=== PATIENT | female | born 1940 | race Caucasian/White ===

== ENCOUNTER 2016-10-23 13:52 | Emergency (ER) | payer MEDICARE, MEDICAID ==
[2016-10-23 14:02] VITALS: BP 105/60; PULSE 63; RESP 19; TEMP 98.2; O2SAT 98
--- NOTE | 2016-10-23 15:17 | ED PDOC ---
Syncope/Near Syncope/Dizziness Time Seen by Provider: 10/23/16 14:10 Chief Complaint (Nursing): Dizziness/Lightheaded Chief Complaint (Provider): Generlized weakness, not feeling well History Per: Patient History/Exam Limitations: no limitations Onset/Duration Of Symptoms: Days (2 weeks) Current Symptoms Are (Timing): Still Present Activity At Onset Of Symptoms: Sitting, Walking Possible Causative Factor(s): denies: Diurectics, New Medications, Recent Alcohol, Decreased PO Intake Additional Complaint(s): Pt is with niece called patient to go shopping today and she said she wasn't feeling well. Pt also reported feeling sad over issues with her . Pt denies chest pain or SOB. PT states this not feeling well and generalized weakness for 2 -3 weeks Past Medical History Reviewed: Historical Data, Nursing Documentation, Vital Signs Vital Signs: Last Vital Signs Temp 98.2 F 10/23/16 14:00 Pulse 63 10/23/16 14:00 Resp 19 10/23/16 14:00 BP 105/60 10/23/16 14:00 Pulse Ox 98 10/23/16 14:00 - Medical History PMH: Depression, HTN, Hypothyroidism, Osteoporosis Denies: Chronic Kidney Disease - Surgical History Surgical History: Appendectomy - Family History Family History: States: No Known Family Hx - Living Arrangements Living Arrangements: With Family - Social History Current smoker - smoking cessation education provided: No - Home Medications Home Medications: Ambulatory Orders Medication Instructions Recorded Aspirin [Aspirin EC] 81 mg PO DAILY 08/07/14 Ergocalciferol (Vitamin D2) 2,000 iu PO DAILY 08/07/14 [Vitamin D2] Fenofibrate [Triglide] 160 mg PO DAILY 08/07/14 Levothyroxine [Synthroid] 0.075 mg PO DAILY 08/07/14 Sertraline Hydrochloride 100 mg PO DAILY 08/07/14 Simvastatin 40 mg PO DAILY 08/07/14 Solifenacin Succinate [Vesicare] 5 mg PO DAILY 08/07/14 Valsartan/Hydrochlorothiazide 1 tab PO DAILY 08/07/14 [Valsartan and Hydrochlorothiazide 25 mg-160 M] Baclofen [Lioresal] 20 mg PO Q8 10/23/16 Bimatoprost [Lumigan 2.5 ml] 2.5 ml OP DAILY 10/23/16 Dorzolamide HCl/Timolol Maleat 10 ml OP DAILY 10/23/16 [Dorzolamide Hydrochloride/Timolol Maleate 22] cycloSPORINE [Restasis] 0.05 % OP DAILY 10/23/16 - Allergies Allergies/Adverse Reactions: Allergies Allergy/AdvReac Type Severity Reaction Status Date / Time No Known Allergies Allergy Verified 10/23/16 13:59 Review of Systems ROS Statement: Except As Marked, All Systems Reviewed And Found Negative Constitutional: Positive for: Weakness. Negative for: Fever, Chills Physical Exam - Reviewed Nursing Documentation Reviewed: Yes Vital Signs Reviewed: Yes - Physical Exam Appears: Positive for: Well, Non-toxic, No Acute Distress Head Exam: Positive for: ATRAUMATIC, NORMAL INSPECTION, NORMOCEPHALIC Skin: Positive for: Normal Color, Warm, DRY Eye Exam: Positive for: Normal appearance ENT: Positive for: Normal ENT Inspection Neck: Positive for: Normal, Painless ROM Cardiovascular/Chest: Positive for: Regular Rate, Rhythm Respiratory: Positive for: CNT, Normal Breath Sounds Gastrointestinal/Abdominal: Positive for: Normal Exam, Bowel Sounds, Soft Back: Positive for: Normal Inspection Extremity: Positive for: Normal ROM Neurologic/Psych: Positive for: Alert, Oriented - Laboratory Results Result Diagrams: 10/23/16 15:55 10/23/16 15:55 - ECG O2 Sat by Pulse Oximetry: 98 Medical Decision Making Medical Decision Making: Pt reports feeling much better on re-evaluation. Stephaniecameron states this has been going on a long time and they will follow-up with PMd and patients psychiatrist. Pt denies SI/HI Disposition - Clinical Impression Clinical Impression: Generalized weakness - Patient ED Disposition Is Patient to be Admitted: No Counseled Patient/Family Regarding: Diagnosis, Need For Followup - Disposition Disposition: Routine/Home Disposition Time: 19:31 Condition: GOOD Additional Instructions: Please follow-up with PMD. Instructions: Weakness (ED)
[2016-10-23 16:02] LABS: BASO % 0.5 % (0.0-2.0); EOS # 0.1 K/uL (0.0-0.7); EOS % 2.3 % (0.0-4.0); HEMATOCRIT 33.5 % (34.0-47.0); LYMPH # 1.5 K/uL (1.0-4.3); LYMPH % 26.4 % (20.0-40.0); MEAN CELL VOLUME 91.9 fl (81.0-99.0); MEAN CORPUSCULAR HEMOGLOBIN 30.5 pg (27.0-31.0); MEAN CORPUSCULAR HGB CONC 33.2 g/dL (33.0-37.0); MEAN PLATELET VOLUME 9.7 fl (7.2-11.7); MONO # 0.4 K/uL (0.0-0.8); MONO % 6.5 % (0.0-10.0); NEUT # 3.6 K/uL (1.8-7.0); NEUT % 64.3 % (50.0-75.0); WHITE BLOOD COUNT 5.5 K/uL (4.8-10.8)
[2016-10-23 16:14] LABS: RBC URINE 3 /hpf (0-3); URINE BILIRUBIN NEGATIVE (NEGATIVE); URINE BLOOD NEGATIVE (NEGATIVE); URINE COLOR YELLOW (YELLOW); URINE GLUCOSE (UA) NEG (Normal); URINE KETONE NEGATIVE (NEGATIVE); URINE LEUKOCYTE ESTERASE SMALL Leu/uL (Negative); URINE PROTEIN 30 mg/dL (NEGATIVE); URINE UROBILINOGEN 0.2-1.0 mg/dL (0.2-1.0); WBC URINE 4 /hpf (0-5)
[2016-10-23 16:16] LABS: ALB/GLOB RATIO 1.2 (1.0-2.1); BILIRUBIN,TOTAL 0.5 mg/dl (0.2-1.3); CALCIUM 10.1 mg/dL (8.4-10.2); POTASSIUM 4.1 MMOL/L (3.6-5.0); TOTAL PROTEIN 7.4 G/DL (6.3-8.2)
[2016-10-23 16:45] LABS: THYROID STIMULATING HORMONE 2.56 mIU/ML (0.46-4.68)
[2016-10-23] MEDS ORDERED: Sodium Chloride 0.9% 1,000 ML IV STA (17:07)
--- NOTE | 2016-10-24 10:14 | CARD ---
APPROVED REPORT EKG Measurement Heart [id number] <Conclusion> Sinus bradycardia Otherwise normal ECG
== END 2016-10-23 20:32 | disposition home or self-care (01) ==
LOC: H.ER 13:52
DX: B96.89 Other specified bacterial agents as the cause of diseases classified elsewhere (principal); R42 Dizziness and giddiness; M62.81 Muscle weakness (generalized); F32.9 Major depressive disorder, single episode, unspecified; I10 Essential (primary) hypertension; Z79.82 Long term (current) use of aspirin
CPT/HCPCS: 80053; 81003; 82948; 84443; 85025; 87086; 93005; 96360; 99284; J7040